=== PATIENT | female | born 1970 | race Caucasian/White ===

== ENCOUNTER → 2017-02-08 | Outpatient (CLI) | payer MEDICARE, OTHER ==
[2015-08-15 11:00] VITALS: BP 146/53
[~2017-02-08] MED LIST: ALPR1TAB6 PO; BUPR1FIL SL; CLON0.5T PO; CYCL5TAB PO; ENOX40DI SQ; ESOM40CA PO; ESZO3TAB28 PO; FAMO40TA57 PO; FENT1PAT21 TD; GABA-585 PO; HALO2TAB PO; HYDR4TAB PO; IPRA4AER IH; KETO10TA PO; LEVO125T5 PO; LORA0.5T PO; METF500T4 PO; OLAN1CAP15 PO; OLAN1CAP9 PO; ONDA4TAB7 PO; OXYC-328 PO; PANT40TA5 PO; PREG50CA PO; PROAIR HFA8.5 GM IH; SUMA100T4 PO; WARF7.5T48 PO
--- NOTE | 2017-02-08 13:02 | KCIC ---
MRI Brain without contrast History: Head trauma, new seizures, migraine headache Technique: Multiplanar, multisequential noncontrast MR imaging was performed of the brain. Contrast: None Comparison: None Findings: There is motion degradation even for repeated images.There is no evidence of an acute infarct or cytotoxic edema. The ventricles, sulci, and cisterns are within normal limits in size and configuration. There is no significant midline shift, intra-axial mass effect, or focal abnormal extra-axial fluid collection. There are a few scattered foci of T2 and FLAIR hyperintense abnormality of the bifrontal white matter. There is no significant hemosiderin deposition of the brain parenchyma. There is preservation of the major intracranial flow-voids at the skull base. The cerebellar tonsils are at the lower limits of normal. There is no significant abnormality of the pineal gland or pituitary gland. There is mild bilateral ethmoid air cell mucosal thickening. There is [id number] bilateral maxillary sinus mucosal thickening. There is mild thickening of the mastoid air cells bilaterally greater on the left. There is nonspecific mild heterogeneity of the marrow of the nonexpanded clivus. 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 Hippocampal formations are symmetric in size and signal characteristics. Impression: 1. There are a few scattered foci of T2 and FLAIR hyperintense abnormality of the bifrontal white matter. White matter changes can be seen in patients with migraine headaches although findings are nonspecific. Pattern is not particularly suggestive of an inflammatory demyelinating disease. 2. There is paranasal sinus mucosal thickening as stated. Electronically signed by: Deniz Aragon MD (02/08/2017 12:59 PM) [id number]
== END | disposition home or self-care (01) ==
LOC: KCIC MRI 11:21
PROVIDERS: ATTEND Family Medicine
DX: S09.90XA Unspecified injury of head, initial encounter (principal); G43.909 Migraine, unspecified, not intractable, without status migrainosus; R56.9 Unspecified convulsions; X58.XXXA Exposure to other specified factors, initial encounter; Y93.89 Activity, other specified; Y92.89 Other specified places as the place of occurrence of the external cause; Y99.8 Other external cause status
CPT/HCPCS: 70551